=== PATIENT | male | born 1930 | race Caucasian/White ===

== ENCOUNTER → 2016-03-21 | Outpatient (CLI) | payer MEDICARE ==
[2015-03-24 11:00] VITALS: BP 93/52
[~2016-03-21] MED LIST: ALPR0.254 PO; AMIO200T2 PO; ASPI325T4 PO; CARV3.122 PO; DOXA2TAB2 PO; HYDR-971 PO; HYDR12.53 PO; LEVO50TA5 PO; OMEG1CAP38 PO; OMEP20CA9 PO; TAMS0.4C2 PO; TEMA15CA6 PO
--- NOTE | 2016-03-21 16:41 | CARD ---
APPROVED REPORT EXAM: Two-dimensional and M-mode echocardiogram with Doppler and color Doppler. Other Information Quality : Technically Limited Rhythm : PacemakerTechnically limited study due to body habitus and CABG. INDICATION Dyspnea Fatigue Hypertension/HCVD Pre-Op Cardiomyopathy Congestive Heart Failure 2D DIMENSIONS IVSd1.2 (0.7-1.1cm)LVDd4.9 (3.9-5.9cm) LVOT Diameter2.4 (1.8-2.4cm)PWd1.2 (0.7-1.1cm) LVDs4.4 (2.5-4.0cm)SV26.8 ml LVEF(%)32.0 (>50%) M-Mode DIMENSIONS Left Atrium(MM)3.33 (2.5-4.0cm)Aortic Root2.89 (2.2-3.7cm) LVDd5.72 (4.0-5.6cm)FS (%) 16 % LVDs4.83 (2.0-3.8cm)LVEF(%)32 (>50%) Aortic Valve AoV Peak Lloyd.75.0cm/sAoV VTI15.2cm AO Peak GR.2.2mmHgLVOT Peak Lloyd.61.0cm/s LVOT VTI 9.50cmAO Mean GR.1mmHg ANN-MARIE (VMAX)2.39xx0FRI (VTI)2.87cm2 AI P 1/2 Jnzj149rd Mitral Valve MV E Lxjxzily65.8cm/sMV DECEL [id number] MV A Alxnwisd03.8cm/sMV E Mean Gr.1mmHg MV VKF26hrB/A Ratio2.0 MV A Oeoxfpje83czPNR (PHT)3.06cm2 Tricuspid Valve TR P. Fzsdbwgk542ob/sRAP BLAZRCTZ2xfZl TR Peak Gr.15rvNmQBQQ55pmBx LEFT VENTRICLE The left ventricle is normal size. There is normal left ventricular wall thickness. Left ventricle sy stolic function is moderately impaired. The Ejection Fraction is 32%. Severe hypokinesis in the apica l septal and anterior apical wall. Tissue Doppler imaging reveals moderate left ventricular diastolic dysfunction. Transmitral Doppler flow pattern is Grade II-pseudonormal filling dynamics. RIGHT VENTRICLE The right ventricle is normal size. The right ventricular systolic function is normal. There is a pac emaker lead seen in the RV/RA. ATRIA The left atrium size is normal. The right atrium size is normal. The interatrial septum is intact wit h no evidence for an atrial septal defect or patent foramen ovale as noted on 2-D or Doppler imaging. AORTIC VALVE The aortic valve is not well visualized. Doppler and Color Flow revealed mild aortic regurgitation. T here is no significant aortic valvular stenosis. MITRAL VALVE Mitral annular calcification is mild. The mitral valve leaflets are thickened. There is no mitral benjamin ve stenosis. Doppler and Color Flow revealed mild mitral regurgitation. TRICUSPID VALVE The tricuspid valve is normal in structure. Doppler and Color Flow revealed mild tricuspid regurgitat ion. Unable to accurately estimate PA pressure due to off axis doppler. There is no tricuspid valve s tenosis. PULMONIC VALVE The pulmonic valve is not well visualized. Doppler and Color Flow revealed no pulmonic valvular regur gitation. There is no pulmonic valvular stenosis. GREAT VESSELS The aortic root is normal in size. The IVC is normal in size and collapses >50% with inspiration. PERICARDIAL EFFUSION There is no evidence of significant pericardial effusion. Critical Notification Critical Value: No <Conclusion> Left ventricle systolic function is moderately impaired. The Ejection Fraction is 32%. Tissue Doppler imaging reveals moderate left ventricular diastolic dysfunction. Transmitral Doppler flow pattern is Grade II-pseudonormal filling dynamics. The left atrium size is normal. Doppler and Color Flow revealed mild aortic regurgitation. Doppler and Color Flow revealed mild mitral regurgitation. Mitral annular calcification is mild. The mitral valve leaflets are thickened. Doppler and Color Flow revealed mild tricuspid regurgitation. Unable to accurately estimate PA pressu re due to off axis doppler. The pulmonic valve is not well visualized. There is no evidence of significant pericardial effusion.
== END | disposition home or self-care (01) ==
LOC: ECHO 08:27
PROVIDERS: ATTEND Internal Medicine Cardiovascular Disease
DX: Z01.818 Encounter for other preprocedural examination (principal); Z95.1 Presence of aortocoronary bypass graft; I73.9 Peripheral vascular disease, unspecified; I42.9 Cardiomyopathy, unspecified; R06.00 Dyspnea, unspecified; R53.83 Other fatigue; I10 Essential (primary) hypertension; I50.9 Heart failure, unspecified; I35.1 Nonrheumatic aortic (valve) insufficiency; I34.0 Nonrheumatic mitral (valve) insufficiency; I07.1 Rheumatic tricuspid insufficiency
CPT/HCPCS: 93306

== ENCOUNTER 2017-01-27 11:43 | Emergency (ER) | payer MEDICARE ==
[~2017-01-27] VITALS: Ht 190.5 cm; Wt 72.6 kg
[~2017-01-27 11:43] MED LIST changes: -ASPI325T4 PO; +ASPI325T8 PO
--- NOTE | 2017-01-27 12:17 | PHYS DOC ---
Past Medical History Past Medical History: Anxiety, GERD, Heart Disease, Hypertension, [place], Prostatitis, Other Additional Past Medical Histor: Cardiac arrest, PACEMAKER/DEFIB RT CHEST Past Surgical History: Cholecystectomy, Coronary Bypass Surgery, Knee Replacement, Pacemaker, Tonsillectomy, Other Additional Past Surgical Histo: HERNIA REPAIR 03/03/15, CARDIAC STENTS Alcohol Use: Occasionally Drug Use: None Adult General Chief Complaint Chief Complaint: SHORTNESS OF BREATH HPI HPI Patient is a 86 year old male who presents with shortness of breath. He states it started couple days ago and this morning it hurts to get worse. He denies any orthopnea. He denies any fevers chills nausea or vomiting. He has a little discomfort and left-sided his chest which he states he fell last time that he was fluid overloaded any Lasix. He denies any leg swelling. He states he follows with Dr. Brigido Gomes and Dr. Zavala. He states he's has a history of heart failure and bypass surgery and has an ICD. Review of Systems Review of Systems Constitutional: Denies fever or chills [] Eyes: Denies change in visual acuity, redness, or eye pain [] HENT: Denies nasal congestion or sore throat [] Respiratory: Denies cough, positive for shortness of breath [] Cardiovascular: No additional information not addressed in HPI [] GI: Denies abdominal pain, nausea, vomiting, bloody stools or diarrhea [] : Denies dysuria or hematuria [] Musculoskeletal: Denies back pain or joint pain [] Integument: Denies rash or skin lesions [] Neurologic: Denies headache, focal weakness or sensory changes [] Endocrine: Denies polyuria or polydipsia [] All other systems were reviewed and found to be within normal limits, except as documented in this note. Current Medications Current Medications Current Medications Medications (Trade) Dose Ordered Sig/Brian Start Time Stop Time Status Last Admin Dose Admin Furosemide (Lasix) 40 mg 1X ONCE 01/27/17 13:30 01/27/17 13:31 DC 01/27/17 13:28 40 MG Allergies Allergies Allergies Coded Allergies Type Severity Reaction Last Updated Verified No Known Drug Allergies 11/23/13 No Physical Exam Physical Exam Constitutional: Well developed, well nourished, no acute distress, non-toxic appearance. [] HENT: Normocephalic, atraumatic, bilateral external ears normal, oropharynx moist, no oral exudates, nose normal. [] Eyes: PERRLA, EOMI, conjunctiva normal, no discharge. [] Neck: Normal range of motion, no tenderness, supple, no stridor. [] Cardiovascular:Heart rate regular rhythm, no murmur [] Lungs & Thorax: Bilateral breath sounds clear to auscultation [] Abdomen: Bowel sounds normal, soft, no tenderness, no masses, no pulsatile masses. [] Skin: Warm, dry, no erythema, no rash. [] Back: No tenderness, no CVA tenderness. [] Extremities: No tenderness, no cyanosis, no clubbing, ROM intact, no edema. [] Neurologic: Alert and oriented X 3, normal motor function, normal sensory function, no focal deficits noted. [] Psychologic: Affect normal, judgement normal, mood normal. [] Current Patient Data Vital Signs Vital Signs Date Time Temp Pulse Resp B/P (MAP) Pulse Ox O2 Delivery O2 Flow Rate FiO2 01/27/17 14:00 68 16 136/67 (90) 96 Room Air 01/27/17 11:50 97.7 97.7 Lab Values Laboratory Tests Test 01/27/17 12:00 01/27/17 12:04 01/27/17 12:30 White Blood Count 6.3 x10^3/uL (4.0-11.0) Red Blood Count 4.55 x10^6/uL (4.30-5.70) Hemoglobin 14.0 g/dL (13.0-17.5) Hematocrit 42.3 % (39.0-53.0) Mean Corpuscular Volume 93 fL (79-100) Mean Corpuscular Hemoglobin 31 pg (25-35) Mean Corpuscular Hemoglobin Concent 33 g/dL (31-37) Red Cell Distribution Width 15.7 % (11.5-14.5) H Platelet Count 132 x10^3/uL (140-400) L Neutrophils (%) (Auto) 66 % (31-73) Lymphocytes (%) (Auto) 23 % (24-48) L Monocytes (%) (Auto) 8 % (0-9) Eosinophils (%) (Auto) 3 % (0-3) Basophils (%) (Auto) 1 % (0-3) Neutrophils # (Auto) 4.1 x10^3uL (1.8-7.7) Lymphocytes # (Auto) 1.4 x10^3/uL (1.0-4.8) Monocytes # (Auto) 0.5 x10^3/uL (0.0-1.1) Eosinophils # (Auto) 0.2 x10^3/uL (0.0-0.7) Basophils # (Auto) 0.0 x10^3/uL (0.0-0.2) Prothrombin Time 13.8 SEC (11.7-14.0) Prothrombin Time INR 1.1 (0.8-1.1) Sodium Level 137 mmol/L (136-145) Potassium Level 4.1 mmol/L (3.5-5.1) Chloride Level 100 mmol/L (98-107) Carbon Dioxide Level 30 mmol/L (21-32) Anion Gap 7 (6-14) Blood Urea Nitrogen 28 mg/dL (8-26) H Creatinine 1.3 mg/dL (0.7-1.3) Estimated GFR (Cockcroft-Gault) 52.5 Glucose Level 89 mg/dL (70-99) Calcium Level 8.9 mg/dL (8.5-10.1) Magnesium Level 2.1 mg/dL (1.8-2.4) Total Bilirubin 0.6 mg/dL (0.2-1.0) Direct Bilirubin 0.2 mg/dL (0.0-0.2) Aspartate Amino Transferase (AST) 16 U/L (15-37) Alanine Aminotransferase (ALT) 16 U/L (16-63) Alkaline Phosphatase 103 U/L (46-116) Creatine Kinase 46 U/L (39-308) Creatine Kinase MB (Mass) < 0.5 ng/mL (0.0-3.6) Creatine Kinase MB Relative Index % (0-4) Troponin I Quantitative < 0.017 ng/mL (0.000-0.055) CV-Lmn-H-Type Natriuretic Peptide 2416 pg/mL (0-449) H Total Protein 7.7 g/dL (6.4-8.2) Albumin 3.5 g/dL (3.4-5.0) Lipase 92 U/L (73-393) Thyroid Stimulating Hormone (TSH) 1.823 uIU/mL (0.358-3.74) Urine Collection Type Unknown Urine Color Mally Urine Clarity Clear Urine pH 5.5 Urine Specific [place] 1.020 Urine Protein Negative mg/dL (NEG-TRACE) Urine Glucose (UA) Negative mg/dL (NEG) Urine Ketones (Stick) Negative mg/dL (NEG) Urine Blood Negative (NEG) Urine Nitrite Negative (NEG) Urine Bilirubin Small (NEG) Urine Urobilinogen Dipstick 2.0 mg/dL (0.2 mg/dL) Urine Leukocyte Esterase Negative (NEG) Urine RBC 0 /HPF (0-2) Urine WBC 0 /HPF (0-4) Urine Squamous Epithelial Cells None /LPF Urine Bacteria 0 /HPF (0-FEW) Urine Mucus Marked /LPF Urine Opiates Screen Neg (NEG) Urine Methadone Screen Neg (NEG) Urine Barbiturates Neg (NEG) Urine Phencyclidine Screen Neg (NEG) Urine Amphetamine/Methamphetamine Neg (NEG) Urine Benzodiazepines Screen Pos (NEG) Urine Cocaine Screen Neg (NEG) Urine Cannabinoids Screen Neg (NEG) Urine Ethyl Alcohol Neg (NEG) Laboratory Tests 01/27/17 12:00 Laboratory Tests 01/27/17 12:00 EKG EKG EKG shows irregular rhythm with rate of [address] elevations or concerning T-wave inversions, T-wave inversions noted in aVL, V4, V5, right axis deviation noted, QTC 405 ms, as interpreted by me. Radiology/Procedures Radiology/Procedures [facility] [address] [place] [address] IMAGING REPORT Signed PATIENT: ALIYAH TILLMAN ACCOUNT: [id number] : 1930 LOCATION: ER AGE: 86 SEX: M EXAM STATUS: PRE ER ORD. PHYSICIAN: KELLY VERGARA MD REASON: chest pain PROCEDURE: PORTABLE CHEST 1V PORTABLE CHEST 1V Clinical Indication: chest pain Comparison: March 23, 2015 Technique: Frontal view of the chest is obtained. Findings: Right chest pacemaker with leads overlying the heart appears similar in positioning, which obscures portions of the right lung. Otherwise, no focal opacity, pleural effusion or pneumothorax is seen. Cardiomediastinal silhouette remains within normal limits of size. Overlying median sternotomy wires redemonstrated. Visualized osseous structures and overlying soft tissues demonstrate no acute interval change. IMPRESSION: No focal consolidation or acute radiographic finding. DICTATED and SIGNED BY: MALU SOTELO MD DATE: 01/27/17 1138 CC: KELLY VERGARA MD; BRIGIDO GOMES MD ~ Impressions: Shortness of breath Course & Med Decision Making Course & Med Decision Making Pertinent Labs and Imaging studies reviewed. (See chart for details) EKG is paced., Labs are nonacute in addition his chest x-ray. Patient was seen by Dr. Zavala who he recommends 40 of IV Lasix 1 and discharged home with follow-up with him. I spoke with Dr. Brigido Gomes regarding Dr. Zavala's recommendations. I offered admission to the patient because weren't sure why he needed Lasix. He states he started feeling better and would rather go home and come back if his needed. Family is in the room when this discussion occurred. The patient's agreeable to plan is being discharged this time in stable condition with return precautions. Dragon Disclaimer Dragon Disclaimer This electronic medical record was generated, in whole or in part, using a voice recognition dictation system. Departure Departure Impression: Primary Impression: Shortness of breath Disposition: 01 HOME, SELF-CARE Condition: STABLE Referrals: BRIGIDO GOMES MD (PCP) ROSALEE GARCIA MD Patient Instructions: Shortness of Breath Additional Instructions: Your EKG, chest x-ray and labs do not show any acute abnormality's. Spoke with Dr. Zavala who came and saw you and he recommends that you be discharged home and received a dose of Lasix prior to being discharged. Spoke with Dr. Brigido Gomes and informed him of your shortness of breath and labs, chest x- ray and the fact that Dr. Zavala recommended that he be discharged home. He will follow you up in his clinic. Please call Dr. Zavala and Dr. Gomes and set up follow-up appointments with him. Return back to ER if your shortness of breath returns, you have chest discomfort, or other concerns. KELLY VERGARA MD Jan 27, 2017 12:17
[2017-01-27 12:25] LABS: CALCIUM 8.9 mg/dL (8.5-10.1); CREATININE 1.3 mg/dL (0.7-1.3); GFR 52.5; POTASSIUM 4.1 mmol/L (3.5-5.1)
[2017-01-27 12:29] LABS: ALBUMIN 3.5 g/dL (3.4-5.0); DIRECT BILIRUBIN 0.2 mg/dL (0.0-0.2); MAGNESIUM 2.1 mg/dL (1.8-2.4); TOTAL BILIRUBIN 0.6 mg/dL (0.2-1.0); TOTAL PROTEIN 7.7 g/dL (6.4-8.2)
[2017-01-27 12:37] LABS: BASO % 1 % (0-3); EOS % 3 % (0-3); HEMATOCRIT 42.3 % (39.0-53.0); LYMPH # 1.4 x10^3/uL (1.0-4.8); LYMPH % 23 % (24-48); MEAN CORPUSCULAR HEMOGLOBIN 31 pg (25-35); MEAN CORPUSCULAR HGB CONC 33 g/dL (31-37); MEAN CORPUSCULAR VOLUME 93 fL (79-100); MONO % 8 % (0-9); NEUT % 66 % (31-73); PLATELET COUNT 132 x10^3/uL (140-400); RED BLOOD COUNT 4.55 x10^6/uL (4.30-5.70); RED CELL DISTRIBUTION WIDTH 15.7 % (11.5-14.5); WHITE BLOOD COUNT 6.3 x10^3/uL (4.0-11.0)
[2017-01-27 12:43] LABS: BILIRUBIN,URINE SMALL (NEG); GLUCOSE,URINE NEGATIVE (NEG); NITRITE,URINE NEGATIVE (NEG); PH,URINE 5.5; PROTEIN,URINE NEGATIVE (NEG-TRACE)
[2017-01-27 12:43] LABS: CKMB MASS < 0.5 ng/mL (0.0-3.6); CREATINE KINASE 46 U/L (39-308)
--- NOTE | 2017-01-27 12:43 | RAD ---
PORTABLE CHEST 1V Clinical Indication: chest pain Comparison: March 23, 2015 Technique: Frontal view of the chest is obtained. Findings: Right chest pacemaker with leads overlying the heart appears similar in positioning, which obscures portions of the right lung. Otherwise, no focal opacity, pleural effusion or pneumothorax is seen. Cardiomediastinal silhouette remains within normal limits of size. Overlying median sternotomy wires redemonstrated. Visualized osseous structures and overlying soft tissues demonstrate no acute interval change. IMPRESSION: No focal consolidation or acute radiographic finding.
[2017-01-27 12:49] LABS: BARBITURATES NEG (NEG); BENZODIAZEPINES POS (NEG); CANNABINOIDS NEG (NEG); COCAINE NEG (NEG); METHADONE NEG (NEG); OPIATES NEG (NEG); PHENCYCLIDINE NEG (NEG)
[2017-01-27 12:51] LABS: BACTERIA,URINE 0 /HPF (0-FEW); RBC,URINE 0 /HPF (0-2); WBC,URINE 0 /HPF (0-4)
[2017-01-27 12:52] LABS: INR 1.1 (0.8-1.1); PROTHROMBIN TIME PATIENT 13.8 SEC (11.7-14.0)
[2017-01-27] MEDS ORDERED: FUROSEMIDE 40 MG/4 ML VIAL. IVP ONE (13:30)
--- NOTE | 2017-01-27 14:05 | EKG ---
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
[2017-01-27 14:30] VITALS: BP 132/72
== END 2017-01-27 14:41 | disposition home or self-care (01) ==
LOC: ER 11:43
DX: R06.02 Shortness of breath (principal); R07.89 Other chest pain; K21.9 Gastro-esophageal reflux disease without esophagitis; I11.0 Hypertensive heart disease with heart failure; I50.9 Heart failure, unspecified; Z86.74 Personal history of sudden cardiac arrest; Z95.5 Presence of coronary angioplasty implant and graft; Z95.810 Presence of automatic (implantable) cardiac defibrillator; Z90.49 Acquired absence of other specified parts of digestive tract; Z95.1 Presence of aortocoronary bypass graft; Z98.890 Other specified postprocedural states
CPT/HCPCS: 36415; 71010; 80048; 80076; 80307; 81001; 82553; 83690; 83735; 83880; 84443; 84484; 85025; 85610; 93005; 96374; 99285; J1940; G0479

== ENCOUNTER → 2017-05-07 | Outpatient (CLI) | payer MEDICARE | END | disposition home or self-care (01) | LOC: US 12:04 | DX: N64.4 Mastodynia (principal); N63.10 Unspecified lump in the right breast, unspecified quadrant | CPT/HCPCS: 76641; 77066 ==

== ENCOUNTER → 2017-07-08 | Outpatient (CLI) | payer MEDICARE ==
[~2017-07-08] MED LIST changes: -ALPR0.254 PO; -AMIO200T2 PO; -ASPI325T8 PO; -CARV3.122 PO; -DOXA2TAB2 PO; -HYDR-971 PO; -HYDR12.53 PO; -LEVO50TA5 PO; +LIDOCAINE 1% Multi-Dose 20 ML VIAL. INJ; +LIDOCAINE WITH 8.4% SOD BICARB 3 ML DISP.SYRIN. INJ; -OMEG1CAP38 PO; -OMEP20CA9 PO; -TAMS0.4C2 PO; -TEMA15CA6 PO
== END | disposition home or self-care (01) ==
LOC: US 11:30
DX: N60.11 Diffuse cystic mastopathy of right breast (principal); N60.91 Unspecified benign mammary dysplasia of right breast; I25.2 Old myocardial infarction; K21.9 Gastro-esophageal reflux disease without esophagitis; I25.10 Atherosclerotic heart disease of native coronary artery without angina pectoris; Z95.1 Presence of aortocoronary bypass graft; Z95.5 Presence of coronary angioplasty implant and graft; Z98.890 Other specified postprocedural states; Z95.0 Presence of cardiac pacemaker; Z90.49 Acquired absence of other specified parts of digestive tract; Z87.39 Personal history of other diseases of the musculoskeletal system and connective tissue; Z72.89 Other problems related to lifestyle
CPT/HCPCS: 19081; 19083; 76942; 88305; 88342; C1713

== ENCOUNTER 2021-01-31 01:15 | Observation (INO) | payer MEDICARE, OTHER ==
[~2021-01-31] VITALS: Ht 190.5 cm; Wt 76.0 kg
[~2021-01-31 01:15] MED LIST changes: +ALPR0.254 PO; +AMIO200T53 PO; +ASPI325T8 PO; +CARV3.1210 PO; +DOXA2TAB2 PO; +HYDR-3164 PO; +HYDR12.575 PO; +LEVO50TA5 PO; -LIDOCAINE 1% Multi-Dose 20 ML VIAL. INJ; -LIDOCAINE WITH 8.4% SOD BICARB 3 ML DISP.SYRIN. INJ; +OMEG1CAP38 PO; +OMEP20CA16 PO; +TAMS0.4C2 PO; +TEMA15CA6 PO
[2021-01-31 01:40] LABS: BASO % 1 % (0-3); EOS # 0.2 x10^3/uL (0.0-0.7); EOS % 4 % (0-3); HEMATOCRIT 30.4 % (39.0-53.0); HEMOGLOBIN 9.8 g/dL (13.0-17.5); LYMPH # 1.4 x10^3/uL (1.0-4.8); LYMPH % 25 % (24-48); MEAN CORPUSCULAR HEMOGLOBIN 30 pg (25-35); MEAN CORPUSCULAR HGB CONC 32 g/dL (31-37); MEAN CORPUSCULAR VOLUME 92 fL (79-100); MONO # 0.5 x10^3/uL (0.0-1.1); MONO % 9 % (0-9); NEUT # 3.4 x10^3/uL (1.8-7.7); NEUT % 62 % (31-73); PLATELET COUNT 130 x10^3/uL (140-400); RED BLOOD COUNT 3.31 x10^6/uL (4.30-5.70); RED CELL DISTRIBUTION WIDTH 15.9 % (11.5-14.5); WHITE BLOOD COUNT 5.6 x10^3/uL (4.0-11.0)
[2021-01-31 01:51] LABS: CALCIUM 8.1 mg/dL (8.5-10.1); CREATININE 2.6 mg/dL (0.7-1.3); GFR 23.4; POTASSIUM 4.4 mmol/L (3.5-5.1)
--- NOTE | 2021-01-31 01:53 | PHYS DOC ---
Past Medical History Past Medical History: Anxiety, CHF, GERD, Heart Disease, Hypertension, [place], Prostatitis, Other Additional Past Medical Histor: Cardiac arrest, PACEMAKER/DEFIB RT CHEST Past Surgical History: Coronary Bypass Surgery, Knee Replacement, Pacemaker, Tonsillectomy, Other Additional Past Surgical Histo: HERNIA REPAIR 03/03/15, CARDIAC STENTS Smoking Status: Former Smoker Alcohol Use: Occasionally Drug Use: None General Adult EDM: Chief Complaint: CHEST PAIN HPI: HPI: Patient is a 89 year old male with history of HTN, HLD, A. fib, CHF, CAD s/p CABG and stents, cardiac arrest with defibrillator implanted who presents with twinges of chest pain to his left chest. Started tonight. It is sharp. It comes to the same exact spot in the chest, points with one finger just superior and medial to the left nipple. Overlies the costo chondral junction. Comes periodically, and disappears completely. Has several twinges per minute. No as sociated shortness of breath. Not pleuritic. Not exertional. Not positional. Cannot find any movements that exacerbate the pain. Has never had similar pain. Denies any recent trauma to the chest. No overuse injury. States he was recently hospitalized at the [facility] and started on a blood thinner for atrial fibrillation. Unsure which blood thinner. States that since discharge has had slightly increased lower extremity edema. States he tried to go to the [facility] tonight, but was diverted. Received 325 mg aspirin 1 tablet nitroglycerin. Review of Systems: Review of Systems: Constitutional: Denies fever or chills. [] Eyes: Denies change in visual acuity. [] HENT: Denies nasal congestion or sore throat. [] Respiratory: Denies cough or shortness of breath. [] Cardiovascular: Reports chest pain and bilateral lower extremity edema GI: Denies abdominal pain, nausea, vomiting, bloody stools or diarrhea. [] : Denies dysuria. [] Musculoskeletal: Denies back pain or joint pain. [] Integument: Denies rash. [] Neurologic: Denies headache, focal weakness or sensory changes. [] Endocrine: Denies polyuria or polydipsia. [] Lymphatic: Denies swollen glands. [] Psychiatric: Denies depression or anxiety. [] Heart Score: C/O Chest Pain: Yes HEART Score for Chest Pain: HEART Score for Chest Pain Response (Comments) Value History Slighlty/Non-Suspicious [address] Depression 2 Age > 65 2 Risk Factors >3 Risk Factors or Hx CAD 2 Total 6 Risk Factors: Risk Factors: History of CAD s/p CABG and stenting Risk Scores: Score 4 - 6: 20.3% MACE over next 6 weeks - Admit for Clinical Observation Score 7 - 10: 72.7% MACE over next 6 weeks - Early Invasive Strategies Allergies: Allergies: Allergies Coded Allergies Type Severity Reaction Last Updated Verified No Known Drug Allergies 11/23/13 No Physical Exam: PE: Constitutional: Well developed, well nourished, no acute distress, non-toxic appearance. [] HENT: Normocephalic, atraumatic, bilateral external ears normal, oropharynx mois t, no oral exudates, nose normal. [] Eyes: PERRLA, EOMI, conjunctiva normal, no discharge. [] Neck: Normal range of motion, no tenderness, supple, no stridor. [] Cardiovascular:Heart rate regular rhythm, no murmur [] Lungs & Thorax: Bilateral breath sounds clear to auscultation. Area of point tenderness just superior and medial to the left nipple. Reproducible pain with palpation. Overlies the costochondral junction. Not reproducible with movement of the upper extremities. [] Abdomen: Bowel sounds normal, soft, no tenderness, no masses, no pulsatile masses. [] Skin: Warm, dry, no erythema, no rash. [] Back: No tenderness, no CVA tenderness. [] Extremities: No tenderness, no cyanosis, no clubbing, ROM intact, no edema. [] Neurologic: Alert and oriented X 3, normal motor function, normal sensory function, no focal deficits noted. [] Psychologic: Affect normal, judgement normal, mood normal. [] Current Patient Data: Labs: Laboratory Tests Test 01/31/21 01:28 White Blood Count 5.6 x10^3/uL (4.0-11.0) Red Blood Count 3.31 x10^6/uL (4.30-5.70) L Hemoglobin 9.8 g/dL (13.0-17.5) L Hematocrit 30.4 % (39.0-53.0) L Mean Corpuscular Volume 92 fL (79-100) Mean Corpuscular Hemoglobin 30 pg (25-35) Mean Corpuscular Hemoglobin Concent 32 g/dL (31-37) Red Cell Distribution Width 15.9 % (11.5-14.5) H Platelet Count 130 x10^3/uL (140-400) L Neutrophils (%) (Auto) 62 % (31-73) Lymphocytes (%) (Auto) 25 % (24-48) Monocytes (%) (Auto) 9 % (0-9) Eosinophils (%) (Auto) 4 % (0-3) H Basophils (%) (Auto) 1 % (0-3) Neutrophils # (Auto) 3.4 x10^3/uL (1.8-7.7) Lymphocytes # (Auto) 1.4 x10^3/uL (1.0-4.8) Monocytes # (Auto) 0.5 x10^3/uL (0.0-1.1) Eosinophils # (Auto) 0.2 x10^3/uL (0.0-0.7) Basophils # (Auto) 0.0 x10^3/uL (0.0-0.2) Laboratory Tests 01/31/21 01:28 EKG: EKG: Right bundle branch block. ST depressions and T wave inversions significant in V1 and V2. No ST elevations. Inferior Q waves. [] Radiology/Procedures: Radiology/Procedures: [] Course & Med Decision Making: Course & Med Decision Making Pertinent Labs and Imaging studies reviewed. (See chart for details) Patient 89-year-old male with history of A. fib, HTN, HLD, CAD s/p CABG and stents who presents with left-sided pinpoint and reproducible chest pain. On exam seems most consistent with musculoskeletal chest pain, but given his high risk history chest pain work-up was performed. EKG with right bundle branch block and anterior ST depressions and T wave inversions. Troponin negative initially. Serial troponins added. CXR without obvious acute process. Radiology read pending. Given recent hospitalization considered PE, Dimer elevated. Renal function precludes CT angio. Will obtain b/l lower extremity DVT studies. Patient is already anticoagulated for afib, so less likely. Work up also showed anemia, thrombocytopenia, Cr 2.6 without recent baseline for comparison. [employer] p[employer] interrogated, no events recorded. Given high risk chest pain, feel he would be most suitable for observation admission. [facility] and [facility] do not have any beds available. Will admit here. Cardiology routine consultation placed. [id number] Sanjay Disclaimer: Sanjay Disclaimer: This electronic medical record was generated, in whole or in part, using a voice recognition dictation system. Departure Departure Impression: Primary Impression: Chest pain Disposition: ADMITTED INPATIENT Admitting Physician: EM Foster) Condition: STABLE Referrals: BRIGIDO GOMES MD (PCP) AMPARO MAY MD Jan 31, 2021 01:53
[2021-01-31 01:56] LABS: ALBUMIN 3.1 g/dL (3.4-5.0); ALBUMIN/GLOBULIN RATIO 1.1 (1.0-1.7); TOTAL BILIRUBIN 0.8 mg/dL (0.2-1.0); TOTAL PROTEIN 5.9 g/dL (6.4-8.2)
[2021-01-31 02:06] LABS: PROTHROMBIN TIME PATIENT 20.3 SEC (11.7-14.0)
[2021-01-31] MEDS ORDERED: ACETAMINOPHEN 325 MG TABLET. PO PRN (03:30)
--- NOTE | 2021-01-31 04:26 | RAD ---
INDICATION: Reason: lower extremity swelling, dimer + / Spl. Instructions: / History: COMPARISON: None. TECHNIQUE: Grayscale, color and doppler ultrasound images were obtained of the bilateral lower extrem ity venous vasculature. RIGHT: No thrombus identified in the common femoral vein, femoral vein, popliteal vein or visualized calf ve ins. LEFT: No thrombus identified in the common femoral vein, femoral vein, popliteal vein or visualized calf ve ins. IMPRESSION: * No thrombus identified in deep venous system of bilateral lower extremities. * Edema of soft tissues. Electronically signed by: Jeremias Romero MD (01/31/2021 4:23 AM) [id number]
[2021-01-31] MEDS ORDERED: MORPHINE SULFATE 2 MG/ML INJ. IVP ONE (04:30)
--- NOTE | 2021-01-31 04:36 | EKG ---
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
--- NOTE | 2021-01-31 04:50 | RAD ---
INDICATION: Reason: left sided chest pain / Spl. Instructions: / History: COMPARISON: January 2017 FINDINGS: Single view of chest obtained. Enlarged cardiomediastinal silhouette with poststernotomy changes and calcific atherosclerosis as wel l as pacemaker. Epicardial leads. Linear opacity left lung base as well as hazy opacity at the right lung base. Degenerative changes spine IMPRESSION: * Mild hazy opacities lung bases could be atelectasis or mild infiltrate. Electronically signed by: Jeremias Romero MD (01/31/2021 4:47 AM) [id number]
[2021-01-31] MEDS ORDERED: ELTR25TA PO (05:26)
[2021-01-31] MEDS ORDERED: ASPI-630 PO (05:26)
[2021-01-31] MEDS ORDERED: CARV6.2511 PO (05:26)
[2021-01-31] MEDS ORDERED: LISI2.5T12 PO (05:26)
[2021-01-31] MEDS ORDERED: ISOS30TA19 PO (05:26)
[2021-01-31] MEDS ORDERED: UBID10CA5 PO (05:26)
[2021-01-31] MEDS ORDERED: FURO20TA3 PO (05:27)
[2021-01-31] MEDS ORDERED: MORPHINE SULFATE 4 MG/ML INJ. IVP ONE (05:30)
[2021-01-31 07:00] VITALS: BP 118/71
[2021-01-31] MEDS ORDERED: NITROGLYCERIN SUBLINGUAL 0.4 MG BOTTLE OF 25. SL PRN (07:00)
[2021-01-31] MEDS ORDERED: ONDANSETRON PF 4 MG/2 ML VIAL. IVP PRN (07:00)
--- NOTE | 2021-01-31 08:00 | NUR ---
DISCHARGED PATIENT TO HOME. PIV AND HEART MONITOR REMOVED. DISCHARGE INSTRUCTIONS GIVEN TO FAMILY AND PATIENT AND VERBALIZED UNDERSTANDING. ESCORTED PATIENT PER WHEELCHAIR INTO A PRIVATE VEHICLE.
--- NOTE | 2021-01-31 09:48 | PDOC2 ---
DANIEL HARTLEY BANK ACCOUNTANT 01/31/21 0948: CARDIAC CONSULT DATE OF CONSULT Date of Consult DATE: 01/31/21 TIME: 09:41 REASON FOR CONSULT Reason for Consult: Chest pain REFERRING PHYSICIAN Referring Physician: Fabricio SOURCE Source: Chart review, Patient HISTORY OF PRESENT ILLNESS HISTORY OF PRESENT ILLNESS This is a 70 yo male admitted for complains of left chest pain. This is sharp and reproducible with palpation and intermittent as well with positional changes. No SOA more than his usual. NO nausea or vomiting. THis started yesterday and it is as bad as when he had his heart attack. NO falls or any recent injury. He is not in distress currently. 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 PAST MEDICAL HISTORY Cardiovascular: AFIB, CAD, CHF, HTN, Hyperlipidemia, Other (ICM; verntricular arrhythmia, cardiac arrest) Psych: Anxiety Musculoskeletal: Osteoarthritis PAST SURGICAL HISTORY Past Surgical History: Pacemaker (AICD), CABG, Hernia Repair, Total knee replacement, Tonsillectomy, Other (PCI) FAMILY HISTORY Family History: Hypertension SOCIAL HISTORY Smoke: No ALCOHOL: none Drugs: None Lives: with Family CURRENT MEDICATIONS CURRENT MEDICATIONS Current Medications Medications (Trade) Dose Ordered Sig/Brian Route PRN Reason Start Time Stop Time Status Last Admin Dose Admin Acetaminophen (Tylenol) 650 mg PRN Q4HRS PRN PO MILD PAIN 1-3 01/31/21 03:30 02/01/21 03:29 01/31/21 04:04 Morphine Sulfate (Morphine Sulfate) 2 mg 1X ONCE IVP 01/31/21 04:30 01/31/21 04:31 DC 01/31/21 04:33 Morphine Sulfate (Morphine Sulfate) 4 mg 1X ONCE IVP 01/31/21 05:30 01/31/21 05:31 DC 01/31/21 06:24 ALLERGIES ALLERGIES: Coded Allergies: No Known Drug Allergies (Unverified , 11/23/13) ROS Review of System 14 point ROS evaluated with pertinent positives noted per HPI PHYSICAL EXAM General: Alert, Oriented X3, Cooperative, No acute distress HEENT: Atraumatic, Mucous membr. moist/pink, Other ([place]) Lungs: Clear to auscultation, Normal air movement Heart: Regular rate (V paced with underlying AFIB), Other (3/6 systolic murmur to LLS border) Extremities: No cyanosis, Other (2-3+ bilateral LE pitting edema) Skin: No breakdown Neuro: Normal speech, Sensation intact Psych/Mental Status: Mental status NL, Mood NL MUSCULOSKELETAL: Osteoarthritic changes both hands VITALS/I&O VITALS/I&O: Vital Signs Date Time Temp Pulse Resp B/P (MAP) Pulse Ox O2 Delivery O2 Flow Rate FiO2 01/31/21 06:45 59 16 110/71 (84) 96 Nasal Cannula 2.0 01/31/21 01:15 98.2 98.2 LABS Lab: Laboratory Tests Test 01/31/21 01:28 01/31/21 04:32 01/31/21 07:55 White Blood Count 5.6 x10^3/uL (4.0-11.0) Red Blood Count 3.31 x10^6/uL (4.30-5.70) L Hemoglobin 9.8 g/dL (13.0-17.5) L Hematocrit 30.4 % (39.0-53.0) L Mean Corpuscular Volume 92 fL (79-100) Mean Corpuscular Hemoglobin 30 pg (25-35) Mean Corpuscular Hemoglobin Concent 32 g/dL (31-37) Red Cell Distribution Width 15.9 % (11.5-14.5) H Platelet Count 130 x10^3/uL (140-400) L Neutrophils (%) (Auto) 62 % (31-73) Lymphocytes (%) (Auto) 25 % (24-48) Monocytes (%) (Auto) 9 % (0-9) Eosinophils (%) (Auto) 4 % (0-3) H Basophils (%) (Auto) 1 % (0-3) Neutrophils # (Auto) 3.4 x10^3/uL (1.8-7.7) Lymphocytes # (Auto) 1.4 x10^3/uL (1.0-4.8) Monocytes # (Auto) 0.5 x10^3/uL (0.0-1.1) Eosinophils # (Auto) 0.2 x10^3/uL (0.0-0.7) Basophils # (Auto) 0.0 x10^3/uL (0.0-0.2) Prothrombin Time 20.3 SEC (11.7-14.0) H Prothrombin Time INR 1.8 (0.8-1.1) H D-Dimer (Shirlene) 6.22 ug/mlFEU (0.00-0.50) H Sodium Level 137 mmol/L (136-145) Potassium Level 4.4 mmol/L (3.5-5.1) Chloride Level 101 mmol/L (98-107) Carbon Dioxide Level 25 mmol/L (21-32) Anion Gap 11 (6-14) Blood Urea Nitrogen 65 mg/dL (8-26) H Creatinine 2.6 mg/dL (0.7-1.3) H Estimated GFR (Cockcroft-Gault) 23.4 BUN/Creatinine Ratio 25 (6-20) H Glucose Level 92 mg/dL (70-99) Calcium Level 8.1 mg/dL (8.5-10.1) L Total Bilirubin 0.8 mg/dL (0.2-1.0) Aspartate Amino Transferase (AST) 54 U/L (15-37) H Alanine Aminotransferase (ALT) 146 U/L (16-63) H Alkaline Phosphatase 94 U/L (46-116) Troponin I High Sensitivity 9 ng/L (4-75) 8 ng/L (4-75) 9 ng/L (4-75) Total Protein 5.9 g/dL (6.4-8.2) L Albumin 3.1 g/dL (3.4-5.0) L Albumin/Globulin Ratio 1.1 (1.0-1.7) Laboratory Tests 01/31/21 01:28 Laboratory Tests 01/31/21 01:28 ASSESSMENT/PLAN ASSESSMENT/PLAN 1. Atypical chest pain: suspect MSK 2. CAD: CABG 2011. Past PCI. Clinically stable. trops nml no acute changes to EKG. 3. ICM 4. HX of ventricular arrhythmia and cardiac arrest 5. HTN: controlled 6. HLP 7. Chronic systolic CHF: compensated 8. AICD in situ: V paced with underlying AFIB 9. Persistent AFIB: recently start on anticoagulation unknown type. rate controlled 10. MEJIA: unknown baseline per PCP Recommendations 1. Continue secondary prevention measures. Continue amiodarone 2. Continue with anticoagulation for stroke prevention, pt does not remember what it is a nd recently started 3. CT chest/abd/pelvis pending 4. [facility] staff. MANOHAR BALDERAS MD 01/31/21 1243: CARDIAC CONSULT ASSESSMENT/PLAN ASSESSMENT/PLAN Patient seen and examined. Agree with WOOD TURNING LATHE OPERATOR's assessment and plan. Chest pain with atypical features, reproducible to palpation and most probably musculoskeletal. Myocardial infarction has been ruled out. CAD status clinically stable. Atrial fibrillation rate controlled. Chronic systolic heart failure clinically well compensated. [facility] Thank you for your consultation DANIEL HARTLEY APRN Jan 31, 2021 09:48 MANOHAR BALDERAS MD Jan 31, 2021 12:43
--- NOTE | 2021-01-31 09:49 | RAD ---
EXAM: CT CHEST, ABDOMEN, AND PELVIS WITHOUT CONTRAST INDICATION: Severe left-sided chest pain. Chronic kidney disease. COMPARISON: CT abdomen and pelvis 12/16/2015 TECHNIQUE: Helical CT imaging performed of the chest, abdomen and pelvis without the use of intraveno us contrast. Sagittal and coronal reformats were obtained. One or more of the following individualized dose reduction techniques were utilized for this examinat ion: 1. Automated exposure control 2. Adjustment of the mA and/or kV according to patient size 3. Use of iterative reconstruction technique. FINDINGS: CHEST: Thyroid gland and thoracic inlet: Unremarkable. Heart and great vessels: The heart is enlarged. There are are surgical changes of CABG and [place] coronary artery calcifications. There is a pacemaker/AICD with multiple leads in the right atrium and ventricle and several pericardial leads. No pericardial effusion. Thoracic aorta is normal in ca liber. Mediastinum and mikael: No lymphadenopathy. Lungs and pleura: There are small bilateral pleural effusions, greater on the right. Mild adjacent de pendent consolidative and groundglass opacities in the lower lobes. Mild groundglass opacities in the posterior right upper lobe. There is mild emphysema. Chest wall and axillae: Central airways are clear no axillary lymphadenopathy. Bones: No acute osseous abnormality. There is degenerative disc disease in the thoracic spine. ABDOMEN AND PELVIS: Liver: The liver is normal in size. There is periportal edema. 2.3 cm simple cyst in the posterior ri ght hepatic lobe. 1 cm simple cyst in the left hepatic lobe. Gallbladder/Biliary Tree: Cholelithiasis Pancreas: Mild diffuse pancreatic atrophy. Spleen: No splenomegaly. Adrenal Glands: Normal. Kidneys/Ureters/Bladder: The kidneys are atrophic. There are multiple bilateral simple renal cysts in cluding a large exophytic left renal cyst measuring at least 9.7 x 5 cm. The largest kidney on the ri ght measures 3.8 cm. There is no nephrolithiasis or hydronephrosis. 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 Reproductive Organs: Prostate gland is normal. Stomach, small bowel, and colon: Stomach is normal. There is no small bowel obstruction. There are harrison rgical changes of bowel in the right hemiabdomen. The colon is unremarkable. Vasculature: There is moderate calcified aortoiliac atherosclerosis. Mild infrarenal abdominal aortic ectasia measuring 2.8 cm, unchanged. Lymph Nodes: No lymphadenopathy. Peritoneum and retroperitoneum: Small volume of ascites. No free air. Bones: Mild S-shaped thoracolumbar scoliosis. Moderate multilevel degenerative disc disease. There ar e interspinous spaces at L4-L5 and L5-S1. Other: Mild anasarca. Small fluid containing right femoral hernia. Surgical clips in the left groin. IMPRESSION: 1. Small right greater than left pleural effusions. There are adjacent dependent opacities in the low er lobes and mild opacities in the posterior right upper lobe, atelectasis versus pneumonia. Mild emp hysema. 2. Cardiomegaly. Surgical changes of CABG. 3. Small volume ascites. Mild periportal edema. 4. Cholelithiasis. Possible gallbladder wall thickening versus pericholecystic fluid, nonspecific. Th is could be seen with acute cholecystitis or in the setting of heart failure, renal failure, or liver failure. 5. Mild bilateral renal atrophy. Multiple bilateral renal cysts including a 9.7 cm exophytic left tatum al cyst. 6. Moderate calcified aortoiliac atherosclerosis. Infrarenal abdominal aortic ectasia. Electronically signed by: Deonna Estrada MD (01/31/2021 9:46 AM) [id number]
[2021-01-31] MEDS ORDERED: CARVEDILOL 6.25 MG TABLET. PO SCH (10:00)
[2021-01-31] MEDS ORDERED: ASPIRIN CHEWABLE 81 MG TABLET. PO SCH (10:00)
[2021-01-31] MEDS ORDERED: TAMSULOSIN 0.4 MG CAP.ER.24H. PO SCH (10:00)
[2021-01-31] MEDS ORDERED: PANTOPRAZOLE 40 MG TABLET.DR. PO SCH (10:00)
[2021-01-31] MEDS ORDERED: ISOSORBIDE MONONITRATE ER 30 MG TAB.ER.24H PO SCH (10:00)
[2021-01-31] MEDS ORDERED: LEVOTHYROXINE 50 MCG TABLET PO SCH (10:30)
--- NOTE | 2021-01-31 10:40 | PDOC1 ---
History and Physical Date of Service: DOS: DATE: 01/31/21 TIME: 10:37 Chief Complaint: Problems: (1) Chest pain Chief Complain: chest pain History of Present Illness: HPI: Patient is a 89 year old male with history of HTN, HLD, A. fib, CHF, CAD s/p CABG and stents, cardiac arrest with defibrillator implanted who presents with twinges of chest pain to his left chest. Started tonight. It is sharp. It comes to the same exact spot in the chest, points with one finger just superior and medial to the left nipple. Overlies the costo chondral junction. Comes periodically, and disappears completely. Has several twinges per minute. No associated shortness of breath. Not pleuritic. Not exertional. Not positional. Cannot find any movements that exacerbate the pain. Has never had similar pain. Denies any recent trauma to the chest. No overuse injury. States he was recently hospitalized [facility] and started on a blood thinner for atrial fibrillation. Unsure which blood thinner. States that since discharge has had slightly increased lower extremity edema. States he tried to go to [facility] tonight, but was diverted. Received 325 mg aspirin 1 tablet nitroglycerin. Past Medical/Surgical History: PMH/PSH: Past Medical History: Anxiety, CHF, GERD, Heart Disease, Hypertension, [place], Prostatitis, Other Additional Past Medical Histor: Cardiac arrest, PACEMAKER/DEFIB RT CHEST Past Surgical History: Coronary Bypass Surgery, Knee Replacement, Pacemaker, Tonsillectomy, Other Additional Past Surgical Histo: HERNIA REPAIR 03/03/15, CARDIAC STENTS Allergies: Allergies: Coded Allergies: No Known Drug Allergies (Unverified , 11/23/13) Family History: Family History: HTN, CAD Social History: Social History: Smoking Status: Former Smoker Alcohol Use: Occasionally Drug Use: None Current Medications: Current Medications Current Medications Acetaminophen (Tylenol) 650 mg PRN Q4HRS PRN PO MILD PAIN 1-3 Last administered on 01/31/21at 04:04; Start 01/31/21 at 03:30; Stop 02/01/21 at 03:29 Morphine Sulfate (Morphine Sulfate) 2 mg 1X ONCE IVP Last administered on 01/31/21at 04:33; Start 01/31/21 at 04:30; Stop 01/31/21 at 04:31; Status DC Morphine Sulfate (Morphine Sulfate) 4 mg 1X ONCE IVP Last administered on 01/31/21at 06:24; Start 01/31/21 at 05:30; Stop 01/31/21 at 05:31; Status DC Ondansetron HCl (Zofran) 4 mg PRN Q4HRS PRN IVP NAUSEA/VOMITING; Start 01/31/21 at 07:00 Nitroglycerin (Nitrostat) 0.4 mg PRN Q5MIN PRN SL CHEST PAIN; Start 01/31/21 at 07:00 Alprazolam (Xanax) 0.25 mg DAILY PO ; Start 02/01/21 at 09:00 Amiodarone HCl (Cordarone) 200 mg DAILY PO ; Start 02/01/21 at 09:00 Aspirin (Aspirin Chewable) 81 mg DAILY PO ; Start 01/31/21 at 10:00 Carvedilol (Coreg) 6.25 mg BIDWMEALS PO ; Start 01/31/21 at 10:00 Levothyroxine Sodium (Synthroid) 50 mcg DAILYAC PO ; Start 01/31/21 at 10:30 Tamsulosin HCl (Flomax) 0.4 mg DAILY PO ; Start 01/31/21 at 10:00 Isosorbide Mononitrate (Imdur) 30 mg DAILY PO ; Start 01/31/21 at 10:00 Pantoprazole Sodium (Protonix) 40 mg BIDAC PO ; Start 01/31/21 at 10:00 Active Scripts Active Reported Furosemide 20 Mg Tablet 20 Mg PO BID Lisinopril 2.5 Mg Tablet 1 Tab PO DAILY Co Q-10 (Ubidecarenone) 10 Mg Capsule 1 Cap PO DAILY 30 Days Aspirin 81 Mg Tab.chew 1 Tab PO DAILY Promacta (Eltrombopag Olamine) 25 Mg Tablet 25 Mg PO DAILY Isosorbide Dinitrate 30 Mg Tablet 1 Tab PO DAILY 30 Days Carvedilol (Carvedilol) 6.25 Mg Tablet 6.25 Mg PO BIDWMEALS Tamsulosin Hcl 0.4 Mg Cap.er.24h 0.4 Mg PO DAILY Levothyroxine Sodium 50 Mcg Tablet 50 Mcg PO DAILYAC Alprazolam 0.25 Mg Tablet 0.25 Mg PO DAILY Omeprazole 20 Mg Capsule.dr 40 Mg PO BID Amiodarone Hcl 200 Mg Tablet 200 Mg PO DAILY ROS: Review of Systems Review of System As noted in HPI 14 point review systems was negative Physical Exam: Vital Signs: Vital Signs Date Time Temp Pulse Resp B/P (MAP) Pulse Ox O2 Delivery O2 Flow Rate FiO2 01/31/21 06:45 59 16 110/71 (84) 96 Nasal Cannula 2.0 01/31/21 01:15 98.2 98.2 Physcial Exam: GEN: No apparent distress. Alert and oriented HEENT: Normal cephalic, atraumatic, external auditory canals are patent EYES: Extraocular muscles are intact, pupil are equally round and reactive to light and accommodation MUSCULOSKELETAL: Well developed , well nourished, good range of motion ENDOCRINE: No thyromegaly was palpated LYMPHATICS: No cervical chain or axillary nodes were noted HEMATOPOIETIC: No bruising NECK: Supple, no JVD, no thyromegaly was noted LUNGS: Clear to auscultation in all lung armendariz without rhonchi or wheezing HEART: RRR, S!, S2 present. Peripheral pulses intact, no obvious murmurs noted ABDOMEN: Soft, nontender. Positive bowel sounds, no organomegaly, normal bowel sounds EXTREMITIES: Without clubbing, cyanosis, or edema. Pedal pulses intact. Negative Homans sign NEUROLOGIC: Normal speech and tone. A&O x 3, moves all extremities, no obvious focal deficits PSYCHIATRIC: Normal affect, normal mood. Stable SKIN: No ulcerations or rashes, good skin turgor, no jaundice VASCULAR: Good capillary refill, neurovascular bundle appears to be intact Labs: Labs: Laboratory Tests Test 01/31/21 01:28 01/31/21 04:32 01/31/21 07:55 White Blood Count 5.6 x10^3/uL (4.0-11.0) Red Blood Count 3.31 x10^6/uL (4.30-5.70) Hemoglobin 9.8 g/dL (13.0-17.5) Hematocrit 30.4 % (39.0-53.0) Mean Corpuscular Volume 92 fL (79-100) Mean Corpuscular Hemoglobin 30 pg (25-35) Mean Corpuscular Hemoglobin Concent 32 g/dL (31-37) Red Cell Distribution Width 15.9 % (11.5-14.5) Platelet Count 130 x10^3/uL (140-400) Neutrophils (%) (Auto) 62 % (31-73) Lymphocytes (%) (Auto) 25 % (24-48) Monocytes (%) (Auto) 9 % (0-9) Eosinophils (%) (Auto) 4 % (0-3) Basophils (%) (Auto) 1 % (0-3) Neutrophils # (Auto) 3.4 x10^3/uL (1.8-7.7) Lymphocytes # (Auto) 1.4 x10^3/uL (1.0-4.8) Monocytes # (Auto) 0.5 x10^3/uL (0.0-1.1) Eosinophils # (Auto) 0.2 x10^3/uL (0.0-0.7) Basophils # (Auto) 0.0 x10^3/uL (0.0-0.2) Prothrombin Time 20.3 SEC (11.7-14.0) Prothromb Time International Ratio 1.8 (0.8-1.1) D-Dimer (Shirlene) 6.22 ug/mlFEU (0.00-0.50) Sodium Level 137 mmol/L (136-145) Potassium Level 4.4 mmol/L (3.5-5.1) Chloride Level 101 mmol/L (98-107) Carbon Dioxide Level 25 mmol/L (21-32) Anion Gap 11 (6-14) Blood Urea Nitrogen 65 mg/dL (8-26) Creatinine 2.6 mg/dL (0.7-1.3) Estimated GFR (Cockcroft-Gault) 23.4 BUN/Creatinine Ratio 25 (6-20) Glucose Level 92 mg/dL (70-99) Calcium Level 8.1 mg/dL (8.5-10.1) Total Bilirubin 0.8 mg/dL (0.2-1.0) Aspartate Amino Transf (AST/SGOT) 54 U/L (15-37) Alanine Aminotransferase (ALT/SGPT) 146 U/L (16-63) Alkaline Phosphatase 94 U/L (46-116) Troponin I High Sensitivity 9 ng/L (4-75) 8 ng/L (4-75) 9 ng/L (4-75) Total Protein 5.9 g/dL (6.4-8.2) Albumin 3.1 g/dL (3.4-5.0) Albumin/Globulin Ratio 1.1 (1.0-1.7) Laboratory Tests Test 01/31/21 01:28 01/31/21 04:32 01/31/21 07:55 White Blood Count 5.6 x10^3/uL (4.0-11.0) Red Blood Count 3.31 x10^6/uL (4.30-5.70) Hemoglobin 9.8 g/dL (13.0-17.5) Hematocrit 30.4 % (39.0-53.0) Mean Corpuscular Volume 92 fL (79-100) Mean Corpuscular Hemoglobin 30 pg (25-35) Mean Corpuscular Hemoglobin Concent 32 g/dL (31-37) Red Cell Distribution Width 15.9 % (11.5-14.5) Platelet Count 130 x10^3/uL (140-400) Neutrophils (%) (Auto) 62 % (31-73) Lymphocytes (%) (Auto) 25 % (24-48) Monocytes (%) (Auto) 9 % (0-9) Eosinophils (%) (Auto) 4 % (0-3) Basophils (%) (Auto) 1 % (0-3) Neutrophils # (Auto) 3.4 x10^3/uL (1.8-7.7) Lymphocytes # (Auto) 1.4 x10^3/uL (1.0-4.8) Monocytes # (Auto) 0.5 x10^3/uL (0.0-1.1) Eosinophils # (Auto) 0.2 x10^3/uL (0.0-0.7) Basophils # (Auto) 0.0 x10^3/uL (0.0-0.2) Prothrombin Time 20.3 SEC (11.7-14.0) Prothromb Time International Ratio 1.8 (0.8-1.1) D-Dimer (Shirlene) 6.22 ug/mlFEU (0.00-0.50) Sodium Level 137 mmol/L (136-145) Potassium Level 4.4 mmol/L (3.5-5.1) Chloride Level 101 mmol/L (98-107) Carbon Dioxide Level 25 mmol/L (21-32) Anion Gap 11 (6-14) Blood Urea Nitrogen 65 mg/dL (8-26) Creatinine 2.6 mg/dL (0.7-1.3) Estimated GFR (Cockcroft-Gault) 23.4 BUN/Creatinine Ratio 25 (6-20) Glucose Level 92 mg/dL (70-99) Calcium Level 8.1 mg/dL (8.5-10.1) Total Bilirubin 0.8 mg/dL (0.2-1.0) Aspartate Amino Transf (AST/SGOT) 54 U/L (15-37) Alanine Aminotransferase (ALT/SGPT) 146 U/L (16-63) Alkaline Phosphatase 94 U/L (46-116) Troponin I High Sensitivity 9 ng/L (4-75) 8 ng/L (4-75) 9 ng/L (4-75) Total Protein 5.9 g/dL (6.4-8.2) Albumin 3.1 g/dL (3.4-5.0) Albumin/Globulin Ratio 1.1 (1.0-1.7) Assessment/Plan Assessment/Plan Chest pain, significant cardiac history -History of chest pain. -Cardiac work-up in emergency room largely negative troponins -Evaluated by cardiology team -[facility] contacted and would [facility] to be sent there. -Given patient stability informed that he would need to provide his own transport there as this was not an emergency -Patients daughter to provide transport ' D/c Justifications for Admission Other Justification LILIAN KUHN MD Jan 31, 2021 10:40
--- NOTE | 2021-01-31 10:45 | PDOC3 ---
[facility]-Discharge Summary Date of Admission: Date of Admission: Jan 31, 2021 Date of Discharge: Date of Discharge: Jan 31, 2021 Admission Diagnosis: Problems: (1) Chest pain Discharge Diagnosis: Discharge Diagnosis: Same Consults: Consults: Cardiology Hospital Course: Hospital Course: Patient is a 89 year old male with history of HTN, HLD, A. fib, CHF, CAD s/p CABG and stents, cardiac arrest with defibrillator implanted who presents with twinges of chest pain to his left chest. Started tonight. It is sharp. It comes to the same exact spot in the chest, points with one finger just superior and medial to the left nipple. Overlies the costo chondral junction. Comes per iodically, and disappears completely. Has several twinges per minute. No associated shortness of breath. Not pleuritic. Not exertional. Not positional. Cannot find any movements that exacerbate the pain. Has never had similar pain. Denies any recent trauma to the chest. No overuse injury. States he was recently hospitalized at the [facility] and started on a blood thinner for atrial fibrillation. Unsure which blood thinner. States that since discharge has had slightly increased lower extremity edema. States he [facility] to go [facility] [place], but was diverted. Received 325 mg aspirin 1 tablet nitroglycerin. Chest pain, significant cardiac history -History of chest pain. -Cardiac work-up in emergency room largely negative troponins -Evaluated by cardiology team -Fitness And Wellness Coordinator from the [facility] contacted and would prefer patient to be sent there. -Given patient stability informed that he would need to provide his own transport there as this was not an emergency and very limited resources currently -Patients daughter to provide transport ' D/c Disposition: Disposition/Orders: D/C to Home Activity: Activity: Resume previous activity Diet: Diet: Cardiac Medications: Home Meds Reported Medications Furosemide (FUROSEMIDE) 20 Mg Tablet, 20 MG PO BID for , TAB 01/31/21 Lisinopril (LISINOPRIL) 2.5 Mg Tablet, 1 TAB PO DAILY for , #30 TAB 5 Refills 01/31/21 Ubidecarenone (CO Q-10) 10 Mg Capsule, 1 CAP PO DAILY for for 30 Days, #30 CAP 0 Refills 01/31/21 Aspirin (ASPIRIN) 81 Mg Tab.chew, 1 TAB PO DAILY for , #30 TAB 3 Refills 01/31/21 Eltrombopag Olamine (PROMACTA) 25 Mg Tablet, 25 MG PO DAILY for , TAB 01/31/21 Isosorbide Dinitrate (ISOSORBIDE DINITRATE) 30 Mg Tablet, 1 TAB PO DAILY for chest pain for 30 Days, #30 TAB 0 Refills 01/31/21 Carvedilol (CARVEDILOL ) 6.25 Mg Tablet, 6.25 MG PO BIDWMEALS for CARDIAC, TAB 01/31/21 Tamsulosin Hcl (TAMSULOSIN HCL) 0.4 Mg Cap.er.24h, 0.4 MG PO DAILY, TAB 11/23/13 Levothyroxine Sodium (LEVOTHYROXINE SODIUM) 50 Mcg Tablet, 50 MCG PO DAILYAC for THYROID SUPPLEMENT, #30 TAB 0 Refills 11/23/13 Alprazolam (ALPRAZOLAM) 0.25 Mg Tablet, 0.25 MG PO DAILY for 04/13/13 Omeprazole (OMEPRAZOLE) 20 Mg Capsule.dr, 40 MG PO BID 04/13/13 Amiodarone Hcl (AMIODARONE HCL) 200 Mg Tablet, 200 MG PO DAILY 04/13/13 Discontinued Reported Medications Temazepam (RESTORIL) 15 Mg Capsule, 15 MG PO HS PRN 04/13/13 Homer-3 Fatty Acids/Fish Oil (OMEGA 3 FISH OIL SOFTGEL) 1 Each Capsule.dr, 2 EACH PO DAILY 04/13/13 Aspirin (ASPIRIN) 325 Mg Tablet, 325 MG PO DAILY 04/13/13 Hydrochlorothiazide (HYDROCHLOROTHIAZIDE CAPSULE ) 12.5 Mg Capsule, 12.5 MG PO DAILY 04/13/13 Scheduled Alprazolam (Alprazolam), 0.25 MG PO DAILY, (Reported) Amiodarone Hcl (Amiodarone Hcl), 200 MG PO DAILY, (Reported) Aspirin (Aspirin), 1 TAB PO DAILY, (Reported) Carvedilol (Carvedilol ), 6.25 MG PO BIDWMEALS, (Reported) Eltrombopag Olamine (Promacta), 25 MG PO DAILY, (Reported) Furosemide (Furosemide), 20 MG PO BID, (Reported) Isosorbide Dinitrate (Isosorbide Dinitrate), 1 TAB PO DAILY, (Reported) Levothyroxine Sodium (Levothyroxine Sodium), 50 MCG PO DAILYAC, (Reported) Lisinopril (Lisinopril), 1 TAB PO DAILY, (Reported) Omeprazole (Omeprazole), 40 MG PO BID, (Reported) Tamsulosin Hcl (Tamsulosin Hcl), 0.4 MG PO DAILY, (Reported) Ubidecarenone (Co Q-10), 1 CAP PO DAILY, (Reported) Discontinued Medications Aspirin (Aspirin), 325 MG PO DAILY, (Reported) Hydrochlorothiazide (Hydrochlorothiazide Capsule ), 12.5 MG PO DAILY, (Reported) Homer-3 Fatty Acids/Fish Oil (Homer 3 Fish Oil Softgel), 2 EACH PO DAILY, (Reported) Temazepam (Restoril), 15 MG PO HS PRN, (Reported) Justicifation of Admission Dx: Justifications for Admission: Justification of Admission Dx: Yes (chest pain) LILIAN KUHN MD Jan 31, 2021 10:45
[2021-01-31 11:00] VITALS: BP 116/65
[2021-02-01] MEDS ORDERED: ALPRAZolam 0.25 MG TABLET PO SCH (09:00)
[2021-02-01] MEDS ORDERED: AMIODARONE HCL 200 MG TABLET. PO SCH (09:00)
== END 2021-01-31 12:27 | disposition home or self-care (01) ==
LOC: ER 01:15 → ED HOLD 03:18
PROVIDERS: ADMIT Internal Medicine; ATTEND Internal Medicine
DX: R07.89 Other chest pain (principal); Z79.01 Long term (current) use of anticoagulants; I11.0 Hypertensive heart disease with heart failure; I50.22 Chronic systolic (congestive) heart failure; N17.9 Acute kidney failure, unspecified; I25.10 Atherosclerotic heart disease of native coronary artery without angina pectoris; I25.2 Old myocardial infarction; I46.9 Cardiac arrest, cause unspecified; I25.5 Ischemic cardiomyopathy; I48.19 Other persistent atrial fibrillation; F41.9 Anxiety disorder, unspecified; E78.5 Hyperlipidemia, unspecified; Z87.891 Personal history of nicotine dependence; Z95.1 Presence of aortocoronary bypass graft; Z95.5 Presence of coronary angioplasty implant and graft; Z95.810 Presence of automatic (implantable) cardiac defibrillator; Z96.659 Presence of unspecified artificial knee joint; Z90.49 Acquired absence of other specified parts of digestive tract; Z79.82 Long term (current) use of aspirin
CPT/HCPCS: 36415; 71045; 71250; 74176; 80053; 84484; 85025; 85379; 85610; 93005; 93970; 96374; 96376; 99285; G0378; G0379; J2270